=== PATIENT | female | born 1990 | race African-American/Black ===

== ENCOUNTER 2024-01-31 22:40 | Emergency (ER) | payer OTHER ==
[~2024-01-31] VITALS: Ht 144.8 cm; Wt 53.6 kg
[2024-01-31 22:50] VITALS: TEMP 99.7
[2024-01-31 23:08] LABS: COVID AG,FIA SOURCE NASAL SWAB
[2024-01-31 23:19] LABS: INFLUENZA TYPE A NEGATIVE FOR TYPE A (NEGATIVE); INFLUENZA TYPE B NEGATIVE FOR TYPE B (NEGATIVE)
[2024-01-31 23:20] LABS: RAPID GROUP A STREP NEGATIVE (NEGATIVE); SARS-COV2 (COVID) ANTIGEN,FIA Negative (Negative)
[2024-02-01] MEDS: OXYMETAZOLINE HCL 0.05% 15 ML NASAL SPRAY NASAL ONE (03:50)
[2024-02-01] MEDS ORDERED: AMOX500C2 PO (04:07)
[2024-02-01 04:17] VITALS: BP 123/78; PULSE 98; RESP 16; O2SAT 98
== END 2024-02-01 04:48 | disposition home or self-care (01) ==
LOC: EMS 22:40
DX: R05.9 Cough, unspecified (principal); H66.93 Otitis media, unspecified, bilateral; Z90.49 Acquired absence of other specified parts of digestive tract; Z20.822 Contact with and (suspected) exposure to COVID-19
CPT/HCPCS: 87430; 87804; 99283